=== PATIENT | male | born 1970 | race Caucasian/White ===

== ENCOUNTER 2016-06-11 08:40 | Day surgery (SDC) | payer OTHER ==
[~2016-06-11 08:40] MED LIST: Bupivacaine 0.25%/EPINEPHrine 1:200,000 30 ML SDV ONE; methylPREDNISolone Acetate 80 MG/ML SDV ONE
[2016-06-11] MEDS ORDERED: Lactated Ringers 1,000 ML IV SCH (09:15)
[2016-06-11 09:20] VITALS: BP 120/63
[2016-06-11] MEDS ORDERED: ceFAZolin 2 GM in Premix Bag 1 BAG IV ONE (10:00)
== END 2016-06-11 10:30 | disposition home or self-care (01) ==
LOC: JP.SDS 08:40
PROVIDERS: ATTEND Orthopaedic Surgery
DX: S83.241A Other tear of medial meniscus, current injury, right knee, initial encounter (principal); Z53.8 Procedure and treatment not carried out for other reasons
CPT/HCPCS: J1040; J7120

== ENCOUNTER 2022-05-27 17:35 | Emergency (ER) | payer OTHER ==
[2022-05-27 17:50] VITALS: BP 129/73; PULSE 86
[2022-05-27] MEDS ORDERED: Lidocaine 1% 5 ML VIAL INJECT ONE (18:06)
[2022-05-27] MEDS ORDERED: Diphtheria,Pertussis(Acell),Tetanus Vaccine 0.5 ML Syringe IM ONE (18:06)
[2022-05-27] MEDS ORDERED: Bacitracin Oint 1 GM U/D Packet TOP ONE (18:06)
[2022-05-27] MEDS ORDERED: ceFAZolin 1 GM Vial IM ONE (18:45)
[2022-05-27] MEDS ORDERED: Water For Injection, Sterile 20 ML ONE (19:27)
== END 2022-05-27 20:18 | disposition home or self-care (01) ==
LOC: JP.ED 17:35
DX: S67.197A Crushing injury of left little finger, initial encounter (principal); S61.317A Laceration without foreign body of left little finger with damage to nail, initial encounter; Z23 Encounter for immunization; Z91.048 Other nonmedicinal substance allergy status; W23.0XXA Caught, crushed, jammed, or pinched between moving objects, initial encounter
CPT/HCPCS: 12002; 73140; 90471; 90715; 96372; 99283; J0690

== ENCOUNTER 2025-02-21 06:28 | Day surgery (SDC) | payer OTHER ==
[2025-02-21 07:00] LABS: PLATELET COUNT,PLT 202.0 K/uL (130-375); RED BLOOD CELL COUNT 4.52 M/uL (4.14-5.76); WHITE BLOOD CELL COUNT,WBC 4.6 K/uL (3.2-11.0)
[2025-02-21] MEDS: Lactated Ringers 1,000 ML IV SCH (07:08)
[2025-02-21] MEDS: Nozin Nasal Sanitizer NASBOTH ONE (07:08)
[2025-02-21] MEDS ORDERED: Dexamethasone 4 MG/ML SDV ONE (07:17)
[2025-02-21] MEDS ORDERED: Ondansetron 4 MG/2 ML SDV ONE (07:17)
[2025-02-21] MEDS ORDERED: fentaNYL 250 MCG/5 ML SDV ONE (07:17)
[2025-02-21] MEDS ORDERED: Propofol 200 MG/20 ML SDV ONE (07:17)
[2025-02-21 07:56] LABS: BLOOD UREA NITROGEN,BUN 14.0 mg/dL (7-18); CARBON DIOXIDE,CO2 31.0 mmol/L (21-32); CHLORIDE,CL 107.0 mmol/L (100-108); CREATININE 0.8 mg/dL (0.8-1.3); EST CRCL DRUG DOSING (CG) 113.79 mL/min; ESTIMATED GFR 105.0 mL/min (>60); GLUCOSE RANDOM 97.0 mg/dL (74-106); POTASSIUM,K 4.3 mmol/L (3.6-5.2); SODIUM,NA 142.0 mmol/L (140-148)
[2025-02-21 10:28] VITALS: BP 143/87; PULSE 59
== END 2025-02-21 10:40 | disposition home or self-care (01) ==
LOC: JP.SDS 06:28
PROVIDERS: ATTEND Specialist
DX: M23.222 Derangement of posterior horn of medial meniscus due to old tear or injury, left knee (principal)
CPT/HCPCS: 36415; 80048; 85027; A9270-GY; J0665; J0690; J1100; J2405; J2704; J3010; J3490; J7120